=== PATIENT | female | born 1965 | race Caucasian/White ===

== ENCOUNTER → 2016-08-16 | Outpatient (CLI) | payer OTHER, MEDICAID | LOC: BHLMT 15:00 | PROVIDERS: ATTEND Internal Medicine Cardiovascular Disease | DX: R55 Syncope and collapse (principal); E78.5 Hyperlipidemia, unspecified; Z95.0 Presence of cardiac pacemaker | CPT/HCPCS: 93005-PO ==

== ENCOUNTER 2018-04-13 10:04 | Emergency (ER) | payer OTHER, MEDICAID ==
[2018-04-13 10:25] VITALS: BP 109/80
[2018-04-13] MEDS ORDERED: LORazepam 2 MG/ML INJ IM ONE (10:59)
--- NOTE | 2018-04-13 11:00 | EDPHY ---
H & P Stated Complaint: fatigue/cough Time Seen by Provider: 04/13/18 10:43 HPI/ROS: CHIEF COMPLAINT: Decreased oral intake, fever, cough HISTORY OF PRESENT ILLNESS: 53-year-old female history of dementia, Down syndrome, nonverbal, arrives via private vehicle with her sister (who is also power of finance attorney) as well as a nurse from [facility]. They describe that for the past 7 days patient has had decreased oral intake, has consumed approximately total of 4 oz of fluid per day, otherwise pushes away food or fluid. She has had a nonproductive cough and fever. No increased work of breathing or parent dyspnea. No change in mental status although this is challenging given her history of dementia and Down syndrome and nonverbal status. No abdominal pain or guarding of abdomen. Bowel movements normal. Urinary habits normal. PRIMARY CARE PROVIDER: Atul REVIEW OF SYSTEMS: 10 systems reviewed and negative with the exception of the elements mentioned in the history of present illness PAST MEDICAL & SURGICAL HISTORY: Dementia, Down syndrome, nonverbal SOCIAL HISTORY:Lives at [facility] PHYSICAL EXAM (Prior to examination, patient consented to physical exam, hands were washed and my usual and customary physical exam procedures followed) 1) GENERAL: Well-developed, well-nourished, anxious appearing, withdrawn. Appears to be in no acute distress. 2) HEAD: , atraumatic 3) HEENT: Pupils equal, round, reactive to light bilaterally. Sclera anicteric. Nasopharynx, oropharynx, clear, no lesions. Moist Mucous membranes. No tonsillar enlargement or exudate. Ears bilaterally with normal tympanic membranes. 4) NECK: Full range of motion, no meningeal signs. 5) LUNGS: Clear auscultation bilaterally, no wheezes, no rhonchi, no retractions. 6) HEART: Regular rate and rhythm, no murmur, no heave, no gallop. 7) ABDOMEN: No guarding, no rebound, no focal tenderness, negative McBurney's, negative Cruz's, negative Rovsing's, negative peritoneal sign, 8) MUSCULOSKELETAL: Moving all extremities, no focal areas of tenderness, no obvious trauma. No peripheral edema or discoloration. 9) BACK: No CVA tenderness, no midline vertebral tenderness, no fluctuance, no step-off, no obvious trauma, no visual or palpable abnormality. 10) SKIN: No rash, no petechiae. DIFFERENTIAL DIAGNOSIS: In no particular order including but not limited to sepsis, pneumonia, meningitis, UTI - Personal History LMP (Females 10-55): Post Menopausal Current Tetanus/Diphtheria Vaccine: Yes Tetanus Vaccine Date: < 5 years - Medical/Surgical History Hx Asthma: No Hx Chronic Respiratory Disease: No Hx Diabetes: No Hx Cardiac Disease: No Hx Renal Disease: No Hx Cirrhosis: No Hx Alcoholism: No Hx HIV/AIDS: No Hx Splenectomy or Spleen Trauma: No Other PMH: down's syndrome nonverbal - Social History Smoking Status: Never smoked Constitutional: Initial Vital Signs Heart Rate 77 04/13/18 10:18 Respiratory Rate 16 04/13/18 10:18 Blood Pressure 109/80 04/13/18 10:18 O2 Sat (%) 90 L 04/13/18 10:18 O2 Delivery Mode Room Air Allergies/Adverse Reactions: No Known Allergies Allergy (Unverified 04/13/18 10:25) Home Medications: Medication Instructions Recorded Cholecalciferol Vit D3 [Vitamin D3 2,000 units PO DAILY 10/28/14 (*)] Herbals/Supplements -Info Only 1 ea PO DAILY 10/28/14 Multivitamins [Multivitamin (*)] 1 each PO DAILY 10/28/14 Newton-3 Fatty Acids [Fish Oil 1000 1,000 mg PO DAILY 10/28/14 mg (*)] Ranitidine HCl [Zantac 75] 75 mg PO BID 10/28/14 levOFLOXACIN [levAQUIN ORAL LIQUID] 750 mg PO DAILY10 6 Days bottle 04/13/18 Medical Decision Making - Diagnostics Imaging Results: Imaging Impressions Chest X-Ray 04/13/18 11:54 Impression: 1. Bilateral alveolar opacities, left greater than right, suggesting asymmetric pulmonary edema versus pneumonia. 2. Pacemaker without pneumothorax. 3. No pleural effusion. ED Course/Re-evaluation: 10:54 a.m.: I have partially evaluated the patient and reviewed her medical records. At this time due to the patient's agitation, a more thorough physical examination is not possible. She is currently fully dressed and refuses to be undressed. She refuses and becomes agitated and violent with attempts at obtaining at a temperature. She is noted to have 90% pulse oxygenation however this was an abnormal waveform. 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 Will administer intramuscular benzodiazepine and re-evaluated , attempt to obtain vital signs, get patient undressed. Care of patient under supervision of secondary supervising physician Dr Torres with whom I discussed case. 12:49 p.m.: Discussed with the patient's sister the imaging results. At this time the patient is sleeping and the sister notes that the patient was actually smiling a few minutes ago and had eaten a few bites of food and was drinking. Discussed that imaging shows more than likely pneumonia. I Had a lengthy discussion with the sister informing her that further pathology is not ruled out such as UTI. The nursing staff attempted to get a clean-catch urine sample however this was not successful. Given the patient's nonverbal status I discussed some of the challenges in diagnosis and discussed the degree to which emergency department evaluation is performed today and the physical and emotional risks versus benefits. We discussed obtaining blood work and catheterized urinalysis and what this would involve, would likely involve multiple staff members restraining the patient. After a lengthy discussion the sister requests no further intervention beyond antibiotic, no blood work, no IV fluids as the patient is currently resting comfortably and thinks that this will a necessarily upset the patient. Patient will be started on oral Levaquin in discharged home. However patient will need to be observed carefully. Sister feels comfortable being discharged. Discussed this with Dr. Pita Torres in the ER. - Data Points Medications Given: Discontinued Medications Levofloxacin (Levaquin) 750 mg PO EDNOW ONE PRN Reason: Protocol Stop: 04/13/18 12:38 Last Admin: 04/13/18 12:57 Dose: Not Given Levofloxacin (Levaquin Oral Liquid) 750 mg PO ONCE ONE Stop: 04/13/18 14:01 Last Admin: 04/13/18 13:53 Dose: 750 mg Lorazepam (Ativan Injection) 1 mg IM EDNOW ONE Stop: 04/13/18 11:00 Last Admin: 04/13/18 11:08 Dose: 1 mg Departure - Departure Disposition: Home, Routine, Self-Care Clinical Impression: Pneumonia Qualifiers: Pneumonia type: due to unspecified organism Laterality: unspecified laterality Lung location: unspecified part of lung Qualified Code(s): J18.9 - Pneumonia, unspecified organism Condition: Good Instructions: Bacterial Pneumonia (ED) Additional Instructions: Return to the ER if Tammi exhibits change in mental status, fevers, is unable to keep food or fluid down, or any other symptoms that concern you. Referrals: Shirley Pollard MD [Primary Care Provider] - 1-2 days without fail Prescriptions: levOFLOXACIN [levAQUIN ORAL LIQUID] 750 mg PO DAILY10 6 Days bottle
[2018-04-13] MEDS ORDERED: levOFLOXACIN ORAL 25 MG/ML 100 ML BOTTLE PO SCH (13:00)
[2018-04-13] MEDS ORDERED: LEVOFLOXACIN PO ONE (14:00)
== END 2018-04-13 14:20 | disposition home or self-care (01) ==
DX: J18.9 Pneumonia, unspecified organism (principal); F03.90 Unspecified dementia, unspecified severity, without behavioral disturbance, psychotic disturbance, mood disturbance, and anxiety; Q90.9 Down syndrome, unspecified; Z95.0 Presence of cardiac pacemaker
CPT/HCPCS: 71046; 96372; 99284; J2060

== ENCOUNTER 2018-04-22 12:58 | Inpatient (IN) | payer OTHER, MEDICAID ==
[2018-04-22] MEDS ORDERED: NS 500 ML IV ONE (13:18)
--- NOTE | 2018-04-22 13:19 | EDPHY ---
H & P Time Seen by Provider: 04/22/18 13:02 HPI/ROS: CHIEF COMPLAINT: Seizure HISTORY OF PRESENT ILLNESS: The patient is a 53-year-old female with a history of developmental delay and dementia who presents emergency department after having a first-time seizure. Of note, the patient was found lying on the carpet this morning. She did have a witnessed fall or seizure. She had a small carpet burn on her forehead. Later today she had witnessed tonic-clonic seizure. EMS arrived and found the patient with a low blood pressure of 80/40. She was given normal saline bolus. Patient's glucose was 124. Patient is now acting normally and back to her baseline per care provider. REVIEW OF SYSTEMS: 10 systems were reveiwed and are negative with the exception of the elements mentioned in the history of present illness. Past Medical/Surgical History: Includes dementia, developmental delay Smoking Status: Never smoked Physical Exam: Vitals noted. 100/59 GENERAL: Developmental delay. No acute distress, alert. HEENT: Patient's forehead has a slight abrasion. Eyes normal to inspection, normal pharynx, no signs of dehydration. NECK: Normal, supple. RESPIRATORY: Clear to auscultation bilaterally, no rales, rhonchi or wheezing. CVS: Regular rate and rhythm, no rubs, murmurs, or gallops. ABDOMEN: Soft, nontender, nondistended, no organomegaly. BACK: Normal to inspection, no CVA tenderness. SKIN: Normal color, no rash, warm, dry. No pallor. EXTREMITIES: No pedal edema, no calf tenderness, no Homans sign or cords, no joint swelling. NEURO/PSYCH: Alert, baseline mood and affect, moves all extremities appropriately. Constitutional: Initial Vital Signs Temperature (C) 36.2 C 04/22/18 13:25 Heart Rate 56 L 04/22/18 13:25 Respiratory Rate 15 04/22/18 13:25 Blood Pressure 100/59 L 04/22/18 13:25 O2 Sat (%) 93 04/22/18 13:25 O2 Delivery Mode Room Air Allergies/Adverse Reactions: No Known Allergies Allergy (Unverified 04/13/18 10:25) Home Medications: Medication Instructions Recorded levOFLOXACIN [levAQUIN ORAL LIQUID] 750 mg PO DAILY10 6 Days bottle 04/13/18 Ativan 04/22/18 Medical Decision Making - Diagnostics Imaging Results: Imaging Impressions Head CT 04/22/18 13:19 Impression: Massive enlargement of the ventricular system suggestive of communicating hydrocephalus, without acute intracranial abnormality identified. Results called to Dr. Rehana Miner at 2:05 PM at the time of the interpretation. ED Course/Re-evaluation: In the emergency department I discussed possible etiologies with the patient's care provider. I answered all her questions. Laboratory studies, EKG and head CT were ordered. EKG shows normal sinus rhythm, normal rate, normal axis, normal intervals. There are no ST or T-wave abnormalities. EKG is normal as interpreted by me. CBC shows an elevated white count of 12. Chemistry panel is unremarkable. Of note, the patient was slightly anxious prior to CT imaging. She was given Ativan 1 mg IV. I rechecked the patient was slightly somnolent. This could be secondary to having seizure as well as receiving Ativan. The patient's care provider states this is not to her baseline. The patient's care provider added that the patient has been seen by Dr. Nuñez previously, and they were told that he could not do anything for them unless she had seizures. Patient will be admitted for observation. I discussed the case with the hospitalist service. Differential Diagnosis: My differential includes but is not limited to seizure, epilepsy, subarachnoid hemorrhage, subdural hematoma, subarachnoid hemorrhage, ischemic CVA, hemorrhagic CVA, dissection, aneurysm, bacteremia, sepsis, dysrhythmia - Data Points Laboratory Results: Laboratory Results 04/22/18 12:55 04/22/18 12:55 04/22/18 04/22/18 04/22/18 12:55 12:55 12:55 WBC 12.93 10^3/uL H 10^3/uL (3.80-9.50) RBC 4.41 10^6/uL 10^6/uL (4.18-5.33) Hgb 14.2 g/dL g/dL (12.6-16.3) Hct 41.7 % % (38.0-47.0) MCV 94.6 fL fL (81.5-99.8) MCH 32.2 pg pg (27.9-34.1) MCHC 34.1 g/dL g/dL (32.4-36.7) RDW 13.3 % % (11.5-15.2) Plt Count 265 10^3/uL 10^3/uL (150-400) MPV 10.2 fL fL (8.7-11.7) Neut % (Auto) 82.8 % H % (39.3-74.2) Lymph % (Auto) 8.9 % L % (15.0-45.0) Harris % (Auto) 6.7 % % (4.5-13.0) Eos % (Auto) 0.2 % L % (0.6-7.6) Baso % (Auto) 0.9 % % (0.3-1.7) Nucleat RBC Rel Count 0.0 % % (0.0-0.2) Absolute Neuts (auto) 10.71 10^3/uL H 10^3/uL (1.70-6.50) Absolute Lymphs (auto) 1.15 10^3/uL 10^3/uL (1.00-3.00) Absolute Monos (auto) 0.87 10^3/uL H 10^3/uL (0.30-0.80) Absolute Eos (auto) 0.02 10^3/uL L 10^3/uL (0.03-0.40) Absolute Basos (auto) 0.11 10^3/uL H 10^3/uL (0.02-0.10) Absolute Nucleated RBC 0.00 10^3/uL 10^3/uL (0-0.01) Immature Gran % 0.5 % % (0.0-1.1) Immature Gran # 0.07 10^3/uL 10^3/uL (0.00-0.10) Sodium 137 mEq/L mEq/L (135-145) Potassium 5.1 mEq/L mEq/L (3.5-5.2) Chloride 103 mEq/L mEq/L (97-110) Carbon Dioxide 26 mEq/l mEq/l (22-31) Anion Gap 8 mEq/L mEq/L (6-14) BUN 13 mg/dL mg/dL (7-23) Creatinine 0.8 mg/dL mg/dL (0.6-1.0) Estimated GFR > 60 Glucose 91 mg/dL mg/dL (70-100) Calcium 8.6 mg/dL mg/dL (8.5-10.4) Troponin I Pending Specimen Hemolysis 123 Medications Given: Discontinued Medications Sodium Chloride (Ns) 500 mls @ 1,000 mls/hr IV EDNOW ONE PRN Reason: Protocol Stop: 04/22/18 13:47 Last Admin: 04/22/18 13:23 Dose: 500 mls Lorazepam (Ativan Injection) 1 mg IVP EDNOW ONE Stop: 04/22/18 14:22 Last Admin: 04/22/18 13:50 Dose: 1 mg Departure - Departure Disposition: [facility] Inpatient Acute Clinical Impression: Seizure Condition: Good Referrals: Patient,NotPresent [Unknown] - As per Instructions
[2018-04-22] MEDS ORDERED: LORazepam 2 MG/ML INJ ONE (13:40)
[2018-04-22 14:07] LABS: PLATELET COUNT 265 10^3/uL (150-400)
[2018-04-22] MEDS ORDERED: LORazepam 2 MG/ML INJ IVP ONE (14:21)
--- NOTE | 2018-04-22 15:16 | CPEKG ---
Test Reason : OPEN Blood Pressure : / mmHG Vent. Rate : 055 BPM Atrial Rate : 054 BPM P-R Int : 144 ms QRS Dur : 076 ms QT Int : 413 ms P-R-T Axes : 047 033 020 degrees QTc Int : 395 ms Sinus rhythm Probable left atrial enlargement Confirmed by Rehana Miner ([id number]) on 04/22/2018 3:16:09 PM Referred By: Confirmed By:Rehana Miner
--- NOTE | 2018-04-22 16:13 | ASMTCMCOM ---
CM Note CM Note Notes: Patient is a 53 year old female accompanied by her sister Lisa . See ED report for details regarding current admission. Patient lives in a host home in [place] and has been followed by "[facility]" for many years. Patient's current RN, Certified Peer Specialist with [facility] is Tiffany Salazar and I have LM with her at this time. Per Lisa, patient has been doing well in her current living situation with supportive care of family and [facility]. Lisa has been coordinating with Harjinder (date night caregiver/[facility]) [phone] as patient's dementia has progressed and they have been preparing for potential hospice and long term care. Given patient's new "seizure" activity this morning, Lisa is concerned that this process may be more imminent. Patient's PCP is Dr. Shirley Pollard with [facility] and I have LM with Dr. Pollard's RN, [employer] Vero Rodriguez #[id number] regarding coordination of care. CM to follow Date Signed: 04/22/2018 04:13 PM Electronically Signed By:Charlotte Hammond RN
[2018-04-22] MEDS ORDERED: ONDANSETRON DISINTEGRATING 4 MG TAB PO PRN (16:35)
[2018-04-22] MEDS ORDERED: ACETAMINOPHEN 325 MG TAB PO PRN (16:35)
[2018-04-22] MEDS ORDERED: ONDANSETRON 4 MG/2 ML VIAL IVP PRN (16:35)
--- NOTE | 2018-04-22 18:34 | GHP ---
DATE OF ADMISSION: 04/22/2018 CHIEF COMPLAINT: Seizure. HISTORY OF PRESENT ILLNESS: A 53-year-old female with a history of Down syndrome. She is nonverbal at baseline. History is obtained from sister. Apparently, about a week and half ago, she was diagno sed with pneumonia in the emergency department. She had been given Levaquin. She did get better. S he was also started on lorazepam 1 mg daily which has really helped her agitation. She has been fini shed with her antibiotics for several days and also her last dose of Ativan was on Tuesday, althoug h she had only been on that for 1 week. Today, she was found lying on the carpet, although it was un clear what went on and she has a small carpet burn on her forehead and then later today she had a wit nessed tonic-clonic seizure. There have been no fevers or chills. The medication changes are as not ed above. Over the last year or year and a half, she has had a marked decline. This has been called dementia a nd attributed to her Down syndrome. She has also had some problems with balance. No imaging has bee n done due to pacemaker. She had seen Neurology in the past as well. REVIEW OF SYSTEMS: Unable to obtain secondary to patient's nonverbal status but pertinent positives and negatives in HPI. PAST MEDICAL HISTORY: 1. Down syndrome. 2. History of pacemaker placement. 3. GERD. 4. Dementia as above. SOCIAL HISTORY: Does live at a intermediate. Sister is involved in her care. FAMILY HISTORY: Noncontributory. PHYSICAL EXAMINATION: VITAL SIGNS: Afebrile, blood pressure is 116/78, heart rate 86, oxygen satura tion 93% on room air. GENERAL: The patient is well developed, no apparent distress. HEENT: Extrao cular movements intact. Pupils equal. NECK: Supple. LUNGS: Good effort. Clear to auscultation b ilaterally. CARDIOVASCULAR: Regular rate and rhythm. No murmurs, gallops. ABDOMEN: Positive juvencio l sounds. Soft, nontender, nondistended. No hepatosplenomegaly. EXTREMITIES: No clubbing, cyanosi s, or edema. SKIN: Without rash. NEUROLOGIC: Obvious Down syndrome. Moving all 4 extremities equa lly. LABS: White blood cell count slightly elevated at 12. Chemistry is normal. Chest x-ray: This show ed consolidation in the right lower lobe. It is patchy. Possible aspiration. CT scan of the head: There is marked ventriculomegaly. ASSESSMENT: A 53-year-old female with a history of Down syndrome. Presented with persistent seizure . PLAN: 1. Seizure. I am not sure what the cause of this is but it could be related to the massive hydrocep halus that she has and general decline. I am not going to start any anti-seizure medication at this time. I will have Neurology see tomorrow. 2. Rule out normal pressure hydrocephalus. This is suggested on CAT scan, although I am not sure ho w this is interpreted in the context of Down syndrome. Will have Neurology see the patient. 3. Possible aspiration. At this time, she is oxygenating completely normally. I am going to hold o ff on any further antibiotics. 4. Down syndrome. 5. Patient is a DNR. /[id number]/MODL
[2018-04-22] MEDS: LORazepam 0.5 MG TAB PO PRN (21:43)
[2018-04-22] MEDS: FAMOTIDINE 20 MG TAB PO SCH (21:56)
[2018-04-23] MEDS: LORazepam 1 MG TAB PO SCH (09:21)
[2018-04-23] MEDS: FAMOTIDINE 20 MG TAB PO SCH ×2 (09:21→20:24)
--- NOTE | 2018-04-23 11:41 | NEUROPROG ---
Assessment: [id number] - Neurology Consult: - CC: Dr. Susan Rangel consulted neurology for seizure. Results placed in EMR for his review. - HPI: Pt with down syndrome and dementia who is followed in my neurology clinic by my colleague, Dr. Kip Nuñez, brought to [facility] ER on 04/22/18 with a seizure. Head CT shows enlarged ventricles which could suggest communicating hydrocephalus or congenital ventriculomegaly. Pt is nonverbal at baseline. History obtained from her sister who is at bedside during my exam/interview. She had been diagnosed with pneumonia 1 week prior to 04/22/18 and was on Levaquin which she finished several days ago. She was found on the ground on 04/22/18 but recovered. Later in the day she had a witnessed generalized tonic clonic seizure. Since 2017 it was reported she has had a marked decline cognitively attributed to dementia from her Down syndrome. She does not have prior head imaging that I am aware of so I am not sure if the enlarged ventricles seen on head CT are new or not. I initially saw the patient on 04/23/18. Her neurologic exam showed no clear focal deficit but she is nonverbal due to her Down Syndrome. I will recommend beginning Keppra 500 mg bid for seizure control. Her neurologist, Dr. Kip Nuñez, will be taking over the inpatient service tomorrow so he can determine if he would like to continue this treatment fci or not. She a pacemaker so cannot have a brain MRI. I discussed her enlarged ventricles on head CT with her sister and she would like neurosurgery to evaluate for any surgical need (such as a shunt) in case this is hydrocephalus. I will place this consult per request. Neurology will continue to follow. - PMHx: down syndrome with dementia, history of pacemaker placement, GERD - SHx: lives at nursing home FHx: sister alive - ROS: Pt denied acute fever, total vision loss, active severe chest pain, respiratory failure, total body severe rash, total bowel/bladder incontinence, psychosis, active seizures, or active bleeding - O: VS reviewed General: Alert but nonverbal Eyes: Fundoscopic exam not able to visualize optic disks CV: Heart RRR, no murmur, no carotid bruit Lungs: Clear to auscultation bilaterally, no rhonchi or rales Neuro: - Mental: . Oriented x 0 . concentration appears reduced . speech fluency/comprehension cannot be tested as pt nonverbal at baseline . memory appears reduced . fund of knowledge appear reduced - Cranial Nerves: . II: No obvious pupil abnl noted but pt not cooperate with testing . III/IV/: EOM appear conjugate . V: facial sensation cannot be tested . VII: no facial weakness noted . VIII: hearing intact to conversation but difficult to test . IX/X: no abnormality noted, exam difficult to pts impaired cognition from Down syndrome . XI: no abnormality noted, exam difficult to pts impaired cognition from Down syndrome . XII: no abnormality noted, exam difficult to pts impaired cognition from Down syndrome - Motor: . Tone: no abnormality noted, exam difficult to pts impaired cognition from Down syndrome . Strength: no abnormality noted, exam difficult to pts impaired cognition from Down syndrome - Reflexes: B/L bic/BR/patella / - Sensory: no abnormality noted, exam difficult to pts impaired cognition from Down syndrome - Coord: no abnormality noted, exam difficult to pts impaired cognition from Down syndrome - Gait: deferred - Labs: 04/22/18- CBC WBC 12.93H, Chem wnl - Rads: 04/22/18- CXR: Right lower lobe airspace consolidation compatible with pneumonia , consider aspiration. - 04/22/18- Head CT: Massive enlargement of the ventricular system suggestive of communicating hydrocephalus , without acute intracranial abnormality identified (I personally visualized the images on 04/23/18) - Assessment: 1. New seizure in setting of Down Syndrome/dementia: Pt with down syndrome and dementia who is followed in my neurology clinic by my colleague, Dr. Kip Nuñez , brought to [facility] ER on 04/22/18 with a seizure. Head CT shows enlarged ventricles which could suggest communicating hydrocephalus or congenital ventriculomegaly. Pt is nonverbal at baseline. History obtained from her sister who is at bedside during my exam/interview. She had been diagnosed with pneumonia 1 week prior to 04/22/18 and was on Levaquin which she finished several days ago. She was found on the ground on 04/22/18 but recovered. Later in the day she had a witnessed generalized tonic clonic seizure. Since 2017 it was reported she has had a marked decline cognitively attributed to dementia from her Down syndrome. She does not have prior head imaging that I am aware of so I am not sure if the enlarged ventricles seen on head CT are new or not. I initially saw the patient on 04/23/18. Her neurologic exam showed no clear focal deficit but she is nonverbal due to her Down Syndrome. I will recommend beginning Keppra 500 mg bid for seizure control. Her neurologist, Dr. Kip Nuñez, will be taking over the inpatient service tomorrow so he can determine if he would like to continue this treatment fci or not. She a pacemaker so cannot have a brain MRI. I discussed her enlarged ventricles on head CT with her sister and she would like neurosurgery to evaluate for any surgical need ( such as a shunt) in case this is hydrocephalus. I will place this consult per request. Neurology will continue to follow. - 2. Enlarged ventricles on head CT on 04/22/18: see previous point 1 for discussion on this finding. - Plan: - Neurosurgery to see today or tomorrow to assess enlarged ventricles and any need for shunt (I called and spoke with Dr. Harmon on 04/22/18) - Begin Keppra 500 mg bid for seizure prevention - Pt not driving due to Down syndrome related cognitive issues - Neurology will continue to follow, her outpatient neurologist, Dr. Nuñez, will be on service tomorrow so he will see patient Objective: Vital Signs Temp Pulse Resp BP Pulse Ox 36.5 C 78 14 102/54 L 95 04/23/18 04:00 04/23/18 08:00 04/23/18 08:00 04/23/18 08:00 04/23/18 08:00 04/22/18 04/23/18 04/24/18 05:59 05:59 05:59 Intake Total 500 Balance 500 Allergies/Adverse Reactions: No Known Allergies Allergy (Unverified 04/13/18 10:25)
--- NOTE | 2018-04-23 12:05 | ASMTCMCOM ---
CM Note CM Note Notes: Spoke to patient's sister who thinks that patient will return to her [facility] while [facility] looks for a higher level of care in their system. Patient has SLS HC and interested in Palliative out-pt services as well. CM to conact [facility] on Tuesday for discharge planning, phone#'s in previous CM Note. Date Signed: 04/23/2018 12:05 PM Electronically Signed By:Mary Hayden LCSW
--- NOTE | 2018-04-23 13:18 | HOSPPROG ---
Hospitalist Progress Note Assessment/Plan: Patient is new to my care. Reviewed notes, imaging. #Acute seizure: Neuro eval appreciated -Keppra 500mg BID, she does not drive #Hydrocephalus: NSGY to evaluate -no other imaging to compare. May be communicating hydrocephalus or congenital ventriculomegaly #Down's syndrome #Dementia: per sister, she has been declining past 6 months. Sleeping more. Eats intermittently #Social: currently lives in host home. Working with [facility]. May benefit from MD -Case Management assisting -sister open to Palliative Care consult #Diet: regular #DVT ppx: Lovenox #Disp: inpatient admission for NSGY evaluation Subjective: pulling at IV site this morning Objective: Vital Signs Temp Pulse Resp BP Pulse Ox 36.5 C 72 16 101/51 L 95 04/23/18 04:00 04/23/18 11:44 04/23/18 11:44 04/23/18 11:44 04/23/18 08:00 04/22/18 04/23/18 04/24/18 05:59 05:59 05:59 Intake Total 500 Balance 500 - Time Spent With Patient Time Spent with Patient: greater than 35 minutes Time Spent with Patient: Greater than 35 minutes spent on this patients care, greater than 50% of time spent counseling, educating, and coordinating care regarding the above mentioned plan. - Physical Exam Constitutional: no apparent distress Eyes: PERRL Ears, Nose, Mouth, Throat: moist mucous membranes Cardiovascular: regular rate and rhythym Respiratory: no respiratory distress Gastrointestinal: normoactive bowel sounds Genitourinary: No alcocer in urethra Musculoskeletal: other (right wrist IV dressed) Psychiatric: other (nonverbal) ICD10 Worksheet Patient Problems: Problems Problem Status Onset Seizure Acute Down syndrome Acute GERD (gastroesophageal reflux disease) Acute Sinus arrest Acute Syncope Acute
--- NOTE | 2018-04-23 14:30 | PDMN ---
Medical Necessity Medical necessity: [facility] [place] [id number] Seizure: 53 yo w/ hx down syndrome dx w/ pneumonia last week via ED presents w/ seizure, unknown etiology but could be r/t massive hydrocephalus based on CT and general decline. Neurology consulted. CT shows enlarged ventricles. Neurosurg consult ordered to review surgical options such as a shunt if it is hydrocephalus. Anti-epileptics started. Fam open to palliative care consult. Pt requires additional MN for neurosurgery consult, ongoing monitoring and tx of the above, palliative care consult, OT and BASKET PERSON evals. Hx down syndrome, pacer, GERD, dementia, non-verbal at baseline, lives in longterm. Change to IP status per MD order 04/23/18@1317
[2018-04-23] MEDS: levETIRAcetam 500 MG TAB PO SCH (20:25)
[2018-04-23] MEDS: LORazepam 0.5 MG TAB PO PRN (20:30)
--- NOTE | 2018-04-24 08:24 | GCON ---
NEUROSURGERY CONSULT DATE OF CONSULTATION: 04/22/2018 Patient was seen and evaluated at approximately 2:20 p.m. on the general care floor at [facility]. HISTORY OF PRESENT ILLNESS: The patient is a 53-year-old woman with Down syndrome. She has been fol lowed in the neurology clinic for some time by Dr. Nuñez, but she was brought into the ER today with a seizure. She has apparently had some seizures before, and per her sister, the conversation they had with Dr. Nuñez, was that this would be common for someone with Down's at her age. She has been declini ng over the past year with regard to her mental status. Her sister says that she has been nonverbal for quite some time, virtually her entire life, but she has become more emotional and less able to ca re for herself. She has never had any imaging of the brain to their knowledge. She did have a CAT s can of the brain yesterday, which shows ventriculomegaly of the bilateral lateral and third ventricle s. The fourth ventricle appears to be more normal sized. She had been placed on Keppra, but we were consulted with regard to further workup or management of hydrocephalus. REVIEW OF SYSTEMS: A 10-point review of systems could not be obtained as the patient is nonverbal. PAST MEDICAL HISTORY: 1. Down syndrome with dementia. 2. Pacemaker placement. 3. Gastroesophageal reflux. SOCIAL HISTORY: The patient lives in a chcf and is cared for by her sister, who is the prima ry person whom this information was obtained from. FAMILY HISTORY: Negative for any neurologic disease. ALLERGIES: No known drug allergies. MEDICATIONS: Reviewed within electronic medical record, and I have no additions at this time. PHYSICAL EXAM: VITAL SIGNS: Currently, she is afebrile with normal and stable vital signs. NEUROLO GIC: She is awake and alert. She is nonverbal and does not clearly follow commands but is walking a round the room and appears to be in her normal state of health. She appears to have full strength of the arms and legs, although she is not completely compliant with direct motor testing. Cranial nerv es 2-12 appear normal. IMAGING REVIEW: The CT of the brain reveals enlargement of the bilateral lateral ventricles as well as the third ventricle. The fourth ventricle appears relatively normal sized. She does have widenin g of all the sulci, which is suggestive of more of a hydrocephalus ex vacuo type of picture rather th an high-pressure hydrocephalus. I do not see any obvious obstruction, although this would be better evaluated with MRI scan. ASSESSMENT AND PLAN: The patient is a 53-year-old woman with Down syndrome who presents with seizure s and had some ventriculomegaly on CT. I discussed the options for this with her sister for quite so me time. Ultimately, we could get an MRI scan that would evaluate better if there was any sort of ob struction at the aqueduct versus any transependymal flow. 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 She would require g eneral anesthesia for an MRI scan as well as subsequent LP if we wanted to test this, and I discussed these options with her sister. Both of us feel that there is probably no compelling reason to andra nue down this workup as it is quite likely that she is just experiencing the decline that is common f or Down syndrome patients in this age of life. They are going to wait and discuss this with Dr. Nuñez, whom they are familiar with, tomorrow, and we would be happy to continue this workup if necessary, b ut at this time, it seems unlikely that it would be beneficial. Please do not hesitate to call us back if there are any further questions or concerns or if we can be of any further assistance. Thanks for the kind consult. Sincerely, /[id number]/MODL
[2018-04-24] MEDS ORDERED: ENOXAPARIN 40 MG/0.4 ML SYR SC SCH (09:00)
[2018-04-24] MEDS: LORazepam 1 MG TAB PO SCH (10:07)
[2018-04-24] MEDS: FAMOTIDINE 20 MG TAB PO SCH (10:08)
[2018-04-24] MEDS: levETIRAcetam 500 MG TAB PO SCH (10:09)
--- NOTE | 2018-04-24 11:17 | NEUROPROG ---
Assessment: 1. Seizure 2. Down syndrome 3. Dementia 35 total minutes floor time; this included review of outpatient records, Dr. Myers's consult and inpatient records Essentially, I see this patient as an outpatient for dementia/Down syndrome. Initially we saw her for indeterminate spells. We performed a EEG which was negative at that time. She then got a pacemaker which resolved the symptoms. This hospital visit was related to the patient having pneumonia being on antibiotics. Around 36 hr after finishing her Levaquin course, she had a witnessed convulsive seizure. We had a long discussion regarding this. Her caregiver/family member was present that I know well. We discussed that did have been provoked from lowering of the seizure threshold with antibiotics but certainly she has risk for unprovoked seizures as well based on her neurologic condition. She was started on Keppra and tolerating it well. At this point, we will continue Keppra indefinitely for seizure prophylaxis as the benefits may outweigh the risks if she were to have recurrent seizures. They will be on the lookout for any potential side effects. We discussed potential risks, benefits and alternatives of Keppra including moodiness, behavioral changes, agitation, suicidal or homicidal ideation. The patient was put on lorazepam for agitation related to the pneumonia. I would not continue this medication. She should be discharged on Keppra 500 mg twice daily and will follow-up with me as an outpatient. Subjective: No further events Objective: Vital Signs Temp Pulse Resp BP Pulse Ox 36.5 C 63 97 H 99/63 L 16 L 04/24/18 03:44 04/24/18 08:00 04/24/18 08:00 04/24/18 08:00 04/24/18 08:00 04/23/18 04/24/18 04/25/18 05:59 05:59 05:59 Intake Total 550 Output Total 800 Balance -250 The patient is awake Dysmorphic features Nonverbal Severe static encephalopathy Allergies/Adverse Reactions: No Known Allergies Allergy (Unverified 04/13/18 10:25)
[2018-04-24 11:44] VITALS: BP 92/73
--- NOTE | 2018-04-24 16:58 | ASMTCMCOM ---
CM Note CM Note Notes: Pt likely d/c this evening back to host home, sister Lisa to transport. Host home caregiver Yuliya needs seizure instruction for pt return and Dr. Nuñez reports if pt seizes they are to call 911, Hospitalist will input this into d/c paperwork. No CM d/c needs identified. Date Signed: 04/24/2018 04:57 PM Electronically Signed By:JASMYN Acuña
--- NOTE | 2018-04-24 17:27 | ASMTLACE ---
LACE Length of stay for Answers: 2 days current admission Acuity / Level of Answers: Yes Care: Did the patient have an inpatient admission? Comorbidities - select Answers: Coronary Artery Disease all that apply Dementia Other Notes: Downs Syndrome # of Emergency department Answers: 1-2 visits in the last 6 months Score: 12 Date Signed: 04/24/2018 05:26 PM Electronically Signed By:JASMYN Acuña
--- NOTE | 2018-04-24 21:02 | PDDCSUM ---
Discharge Summary Discharge Summary: patient is a 53 year old female admitted after suffering a seizure. she was admitted and a brain MRI was obtained showing hydrocephalus and ventriculomegaly. Neurology was consulted for management of her seizures and she was started on keppra. Neurosurgery was consulted for evaluation of her hydrocephalus and suggested that a brain MRI could be obtained but felt comfortable that this was due to hydrocephalus ex vacuo and that there was likely little intervention required. both neuro and neurosurgery felt that patient was stable and did not require further workup. Decision was made to stop patients home ativan as it was causing sedation, and discharge her home on keppra to follow up with Dr. Nuñez her neurologist. she was discharged back to her caregive at [facility] in good condition. On the day of discharge patient examination pertinent for General NAD HEENT- atraumatic normocephalic, MMM pink and acyanotic, PERRLA Lungs- CTAB, with some rhonchi CV- RRR, No MRG Abdomen- Soft NT/ND, no organomegaly, no guarding or rebound Extremities- No CCE or calf pain psych- appeared calm, Neuro- patient non verbal, but no apparent focal deficits.
== END 2018-04-24 18:09 | disposition home or self-care (01) | DRG 57 ==
LOC: EDUNIT# → F3N 17:05 → OBSVTOIN 04-23 13:12
PROVIDERS: ADMIT Internal Medicine; ATTEND Internal Medicine
DX: G91.9 Hydrocephalus, unspecified (principal); G40.909 Epilepsy, unspecified, not intractable, without status epilepticus; Q90.9 Down syndrome, unspecified; E86.9 Volume depletion, unspecified; F03.90 Unspecified dementia, unspecified severity, without behavioral disturbance, psychotic disturbance, mood disturbance, and anxiety; G93.89 Other specified disorders of brain; K21.9 Gastro-esophageal reflux disease without esophagitis; Z66 Do not resuscitate; Z95.0 Presence of cardiac pacemaker
CPT/HCPCS: 92526-GN; 92610-GN; 96374; G0378; G8996-GN-CJ; G8997-GN-CJ; G8998-GN-CJ; J1650; J2060